=== PATIENT | female | born 2000 | race Caucasian/White ===

== ENCOUNTER 2020-02-18 10:06 | Emergency (ER) | payer OTHER ==
[~2020-02-18 10:06] MED LIST: BENTYL 20MG TAB20 MG PO; ZOFRAN ODT 4 MG4 MG PO
[2020-02-18 12:55] LABS: HEMOGLOBIN 13.1 gm/dl (12.3-15.3)
== END 2020-02-18 14:05 | disposition home or self-care (01) ==
LOC: ER1 10:06
PROVIDERS: Physician Assistant
DX: O20.0 Threatened abortion (principal); Z86.39 Personal history of other endocrine, nutritional and metabolic disease; Z3A.09 9 weeks gestation of pregnancy
CPT/HCPCS: 76817; 81001; 85014; 85018; 99284

== ENCOUNTER 2020-08-02 01:39 | Outpatient (CLI) | payer OTHER | END 2020-08-02 05:32 | disposition home or self-care (01) | LOC: GENOP 01:39 | DX: O99.891 Other specified diseases and conditions complicating pregnancy (principal); M54.5 Low back pain; R10.30 Lower abdominal pain, unspecified; R35.0 Frequency of micturition; O99.213 Obesity complicating pregnancy, third trimester; E66.9 Obesity, unspecified; Z87.440 Personal history of urinary (tract) infections; Z3A.33 33 weeks gestation of pregnancy | CPT/HCPCS: 81001; 96360; 96361 ==

== ENCOUNTER 2020-08-10 22:15 | Outpatient (CLI) | payer OTHER | END 2020-08-11 00:42 | disposition home or self-care (01) | LOC: GENOP 22:15 | DX: O99.891 Other specified diseases and conditions complicating pregnancy (principal); N89.8 Other specified noninflammatory disorders of vagina; M54.5 Low back pain; Z87.440 Personal history of urinary (tract) infections; Z3A.34 34 weeks gestation of pregnancy | CPT/HCPCS: 59025; 81001; 82731; 83518 ==

== ENCOUNTER 2020-08-23 22:44 | Inpatient (IN) | payer OTHER ==
[~2020-08-23] VITALS: Ht 157.5 cm; Wt 111.6 kg
[2020-08-24 03:10] LABS: HEMOGLOBIN 11.2 gm/dl (12.3-15.3); RED BLOOD COUNT 4.08 M/UL (4.00-5.10); WHITE BLOOD COUNT 15.7 K/UL (4.5-11.0)
[2020-08-25 06:15] LABS: HEMOGLOBIN 10.4 gm/dl (12.3-15.3)
== END 2020-08-25 13:34 | disposition home or self-care (01) | DRG 807 ==
LOC: GENOP 22:44 → OB 08-24 02:20
PROVIDERS: ADMIT Obstetrics & Gynecology
PROC: 10907ZC Drainage of Amniotic Fluid, Therapeutic from Products of Conception, Via Natural or Artificial Opening (ICD-10-PCS; principal; 2020-08-24)
PROC: 10E0XZZ Delivery of Products of Conception, External Approach (ICD-10-PCS; 2020-08-24)
PROC: 0KQM0ZZ Repair Perineum Muscle, Open Approach (ICD-10-PCS; 2020-08-24)
DX: O60.14X0 Preterm labor third trimester with preterm delivery third trimester, not applicable or unspecified (principal); Z37.0 Single live birth; O99.214 Obesity complicating childbirth; O99.344 Other mental disorders complicating childbirth; O70.1 Second degree perineal laceration during delivery; F41.8 Other specified anxiety disorders; Z3A.36 36 weeks gestation of pregnancy
CPT/HCPCS: 36415; 51702; 81001; 82800; 85014; 85018; 85025; 90471; 90715; J2590; J2795; J3010; U0002